=== PATIENT | male | born 1950 | race Asian ===

== ENCOUNTER 2019-04-06 19:41 | Emergency (ER) | payer BC, MEDICARE ==
--- NOTE | 2019-04-06 20:04 | EDM.PDOC ---
ED HPI GENERAL MEDICAL PROBLEM - General Chief Complaint: Cardiovascular Problem Stated Complaint: COUGH Time Seen by Provider: 04/06/19 19:59 Source of Information: Reports: Patient History Limitations: Reports: No Limitations - History of Present Illness INITIAL COMMENTS - FREE TEXT/NARRATIVE: Patient comes in after suffering a coughing spell that nearly caused him to pass out. His significant other that is with him thought he was having an asthma attack. He denies any history of asthma. He has had this cough for the last 3 days and is minimally productive. Denies fever, chills, SOB, chest pain , no abdominal pain, no blood in urine or stool. No complaints, some constipation. History of stent placed 2 years ago, but is still on plavix due to narrowing of coronary arteries. Denies history of heart attack or stroke. Has been on lisinopril for some time. Onset: Gradual Duration: Intermittent Location: Reports: Chest Severity: Mild Improves with: Reports: None Worsens with: Reports: None Associated Symptoms: Reports: Other (sinus congestion) - Related Data Allergies Allergy/AdvReac Type Severity Reaction Status Date / Time No Known Allergies Allergy Verified 04/06/19 19:55 Home Meds: Home Meds Allopurinol [Zyloprim] 300 mg PO DAILY 07/30/17 [History] Aspirin [Halfprin] 81 mg PO BRK 07/30/17 [History] Celecoxib 200 mg PO DAILY PRN 07/30/17 [History] Clopidogrel [Plavix] 75 mg PO DAILY 07/30/17 [History] Lisinopril 20 mg PO DAILY 07/30/17 [History] Metoprolol Succinate [Toprol XL] 25 mg PO DAILY 07/30/17 [History] [place]-3/DHA/Epa/Fish Oil [Fish Oil 1,000 mg Softgel] 1 each PO DAILY 07/30/17 [ History] Rosuvastatin Calcium 20 mg PO DAILY 04/06/19 [History] ED ROS GENERAL - Review of Systems Review Of Systems: See Below Constitutional: Reports: No Symptoms HEENT: Reports: Sinus Problem Respiratory: Reports: Cough, Sputum Cardiovascular: Reports: No Symptoms Endocrine: Reports: No Symptoms GI/Abdominal: Reports: No Symptoms : Reports: No Symptoms Musculoskeletal: Reports: No Symptoms Skin: Reports: No Symptoms Neurological: Reports: Dizziness Psychiatric: Reports: No Symptoms Hematologic/Lymphatic: Reports: No Symptoms Immunologic: Reports: No Symptoms ED EXAM, GENERAL - Physical Exam Exam: See Below Exam Limited By: No Limitations General Appearance: Alert, WD/WN, No Apparent Distress Eye Exam: Bilateral Eye: EOMI, Normal Inspection, PERRL Ears: Normal TMs Nose: Normal Inspection, Normal Mucosa, No Blood Throat/Mouth: Normal Inspection, Normal Lips, Normal Teeth, Normal Gums, Normal Oropharynx, Normal Voice, No Airway Compromise Head: Atraumatic, Normocephalic Neck: Normal Inspection, Supple, Non-Tender, Full Range of Motion Respiratory/Chest: No Respiratory Distress, Lungs Clear, Normal Breath Sounds, No Accessory Muscle Use, Chest Non-Tender Cardiovascular: Normal Peripheral Pulses, Regular Rate, Rhythm, No Edema, No Gallop, No JVD, No Murmur, No Rub Peripheral Pulses: 2+: Posterior Tibial (L), Posterior Tibial (R), Dorsalis Pedis (L), Dorsalis Pedis (R) GI/Abdominal: Normal Bowel Sounds, Soft, Non-Tender, No Organomegaly, No Distention, No Abnormal Bruit, No Mass Back Exam: Normal Inspection, Full Range of Motion, NT Extremities: Normal Inspection, Normal Range of Motion, Non-Tender, Normal Capillary Refill, No Pedal Edema Neurological: Alert, Oriented, CN II-XII Intact, Normal Cognition, Normal Gait, Normal Reflexes, No Motor/Sensory Deficits Psychiatric: Normal Affect, Normal Mood Skin Exam: Warm, Dry, Intact, Normal Color, No Rash Lymphatic: No Adenopathy EKG INTERPRETATION EKG Date: 04/06/19 Time: 20:29 Rhythm: NSR Rate (Beats/Min): 73 [place]: LAD-Left [place] Deviation P-Wave: Present QRS: Normal ST-T: Normal QT: Normal Comparison: NA - No Prior EKG Course - Vital Signs Last Recorded V/S: Last Vital Signs Temp 36.6 C 04/06/19 19:53 Pulse 78 04/06/19 19:53 Resp 16 04/06/19 19:53 BP 110/66 04/06/19 19:53 Pulse Ox 94 L 04/06/19 19:53 Departure - Departure Time of Disposition: 21:08 Disposition: Home, Self-Care 01 Condition: Good Clinical Impression: Vasovagal near-syncope Instructions: Near-Syncope, [id number], Allergies, Adult, [id number] Referrals: Lula Hoffmann DO [Primary Care Provider] - Additional Instructions: Plan 1. Follow up with Dr. Hoffmann as needed for additional follow up. If you start running a fever or chills, you should be reevaluated for pneumonia. 2. Take over the counter antihistamines like zyrtec or claritin for your allergies 3. Stay well hydrated 4. If your cough continues for several weeks, you may want to visit with Dr. Hoffmann about stopping lisinopril 5. This does appear to be what is called a vasal vagal episode where your coughing spell triggered a low blood pressure causing a near collapse. 6. You can try honey in tea for your cough 7. Please call if you have any questions or concerns - Problem List & Annotations (1) Seasonal allergies SNOMED Code(s): 810643244 Code(s): J30.2 - OTHER SEASONAL ALLERGIC RHINITIS Status: Acute Priority : Low Current Visit: Yes (2) Vasovagal near-syncope SNOMED Code(s): 355701217 Code(s): R55 - SYNCOPE AND COLLAPSE Status: Acute Priority: Medium Current Visit: Yes - Problem List Review Problem List Initiated/Reviewed/Updated: Yes - Assessment/Plan Assessment:: vasavagal syncope seasonal allergies Plan: Plan 1. Follow up with Dr. Hoffmann as needed for additional follow up. If you start running a fever or chills, you should be reevaluated for pneumonia. 2. Take over the counter antihistamines like zyrtec or claritin for your allergies 3. Stay well hydrated 4. If your cough continues for several weeks, you may want to visit with Dr. Hoffmann about stopping lisinopril 5. This does appear to be what is called a vasal vagal episode where your coughing spell triggered a low blood pressure causing a near collapse. 6. You can try honey in tea for your cough 7. Please call if you have any questions or concerns
[2019-04-06] MEDS ORDERED: Albuterol/Ipratropium 3.0-0.5 MG/3 ML Neb Soln NEB ONE (20:11)
[2019-04-06] MEDS ORDERED: methylPREDNISolone Sodium Succinate 40 MG/1 ML SDV IM ONE (20:11)
--- NOTE | 2019-04-06 20:43 | CR ---
[id number] RAD/RAD Chest PA or AP 1V EXAM: RAD Chest PA or AP 1V INDICATION: COUGH COMPARISON: None. DISCUSSION: Linear metallic density overlying the left lung apex may be external to the patient. Cardiomediastinal silhouette is normal in size and contour. No infiltrate, effusion, pneumothorax, or edema. Low lung volumes associated vascular crowding. IMPRESSION: No acute cardiopulmonary abnormality. Khris Ibrahim DO 04/06/19 2042 Thank you for allowing us to participate in the care of your patient.
[2019-04-06 20:54] LABS: CHLORIDE,CL 102 mmol/L (98-107); SODIUM,NA 139 mmol/L (136-145)
[2019-04-06 20:55] LABS: ANION GAP 14.1 mmol/L (10-20)
== END 2019-04-06 21:14 | disposition home or self-care (01) ==
LOC: VM.ED 19:41
DX: R55 Syncope and collapse (principal); Z79.82 Long term (current) use of aspirin; Z79.899 Other long term (current) drug therapy
CPT/HCPCS: 36415; 71045; 80053; 84484; 85025; 93005; 94640; 96372; 99284-25; J2920; J7620-GY

== ENCOUNTER 2021-09-22 10:32 | Emergency (ER) | payer BC, MEDICARE ==
[2021-09-22] MEDS ORDERED: Sodium Chloride 0.9% 10 ML Syringe FLUSH PRN (11:06)
--- NOTE | 2021-09-22 11:13 | EDM.PDOC ---
ED HPI GENERAL MEDICAL PROBLEM - General Stated Complaint: DIFFICULTY BREATHING Time Seen by Provider: 09/22/21 11:06 Source of Information: Reports: Patient, Family - History of Present Illness INITIAL COMMENTS - FREE TEXT/NARRATIVE: Sergo is a 71 y/o male who is brought the ER via POV by his after he had a coughing episode and home and then collapsed. He may have passed out, but came right to. He did receive the Moderna booster and influenza vaccines last week. The last 3-4 days he has had a cold and congestion. He has alot of drainage down the back of his throat and then he coughs alot. He sometimes gets a bloody nose when he blows his nose. No fever. He does feel a little SOB with all of this going on. Denies chest pain now. Does have a hx of PTCA x1 in 2017 following a cath when he had an abnormal stress test. - Related Data Allergies Allergy/AdvReac Type Severity Reaction Status Date / Time No Known Allergies Allergy Verified 04/06/19 19:55 Home Meds: Home Meds Allopurinol [Zyloprim] 300 mg PO DAILY 07/30/17 [History] Aspirin [Halfprin] 81 mg PO BRK 07/30/17 [History] Metoprolol Succinate [Toprol XL] 25 mg PO DAILY 07/30/17 [History] [place]-3/DHA/Epa/Fish Oil [Fish Oil 1,000 mg Softgel] 1 each PO DAILY 07/30/17 [History] Rosuvastatin Calcium 20 mg PO DAILY 04/06/19 [History] Amoxicillin 875 mg PO BID #16 tab 09/22/21 [Rx] Cholecalciferol (Vitamin D3) [Vitamin D3] 2,000 unit PO 09/22/21 [History] Dupilumab [Dupixent Pen] 300 mg SQ ASDIRECTED 09/22/21 [History] Losartan [Cozaar] 50 mg PO DAILY 09/22/21 [History] Melatonin 1 mg PO BEDTIME 09/22/21 [History] Past Medical History Cardiovascular History: Reports: High Cholesterol, Hypertension, Stents Other Cardiovascular History: Stent x 1 placed in 2017 Review of Systems - Review of Systems Review Of Systems: See Below Constitutional: Reports: No Symptoms Eyes: Reports: No Symptoms Ears: Reports: No Symptoms Nose: Reports: Congestion, Bloody Discharge, Purulent Discharge Mouth/Throat: Reports: No Symptoms Respiratory: Reports: Shortness of Breath, Cough Cardiovascular: Reports: No Symptoms GI/Abdominal: Reports: No Symptoms Genitourinary: Reports: No Symptoms Musculoskeletal: Reports: No Symptoms Skin: Reports: No Symptoms Neurological: Reports: Dizziness Psychiatric: Reports: No Symptoms ED EXAM, GENERAL - Physical Exam Exam: See Below General Appearance: Alert, WD/WN, No Apparent Distress (Elderly male, lying quietly on ER cart.) Eye Exam: Bilateral Eye: PERRL Ears: Normal External Exam, Normal Canal, Hearing Grossly Normal, Normal TMs Nose: Other (Nasal mucos irritated) Throat/Mouth: Normal Inspection, Normal Lips, Normal Oropharynx, Normal Voice Head: Atraumatic, Normocephalic Neck: Supple Respiratory/Chest: No Respiratory Distress, Lungs Clear, Chest Non-Tender Cardiovascular: Normal Peripheral Pulses, Regular Rate, Rhythm GI/Abdominal: Normal Bowel Sounds, Soft (Male) Exam: Deferred Rectal (Males) Exam: Deferred Back Exam: Normal Inspection Extremities: Normal Inspection, Normal Capillary Refill Neurological: Alert, Oriented, CN II-XII Intact, No Motor/Sensory Deficits Psychiatric: Normal Affect, Normal Mood Skin Exam: Warm, Dry, Intact, Normal Color Lymphatic: No Adenopathy #1 Interpretation EKG Date: 09/22/21 Time: 10:37 Rhythm: NSR Rate (Beats/Min): 81 [place]: Normal P-Wave: Present QRS: Normal ST-T: Normal QT: Normal Comparison: No Change EKG Interpretation Comments: Sinus Rhythm Course - Vital Signs Text/Narrative:: The patient was seen by the [facility]. Labs, EKG, and CXR ordered. VSS. Patient has hx of syncope with vasovagal reaction in past from coughing, but will rule out other causes due to past medical hx. 1220 Labs reviewed, doubt cardica etiology of syncope. Patient had coughing spell and has done this in the past. Will treat with abx for sinus infection. Written instructions were given and he left the ER in stable condition. Last Recorded V/S: Last Vital Signs Temp 36.8 C 09/22/21 11:11 Pulse 94 09/22/21 11:11 Resp 18 09/22/21 11:11 BP 193/104 H 09/22/21 11:11 Pulse Ox 95 09/22/21 11:11 - Orders/Labs/Meds Orders: Active Orders 24 hr Category Date Time Status COVID-19/FLU A+B [MOLEC] Stat Lab 09/22/21 11:07 Ordered UA RFX VERENA AND CULT IF INDIC [URIN] Stat Lab 09/22/21 11:07 Ordered Amoxicillin [Take Home: Amoxicillin 875 MG Tab, 2 Tab Med 09/22/21 12:25 Once Pack] 2 packet PO ONETIME ONE Sodium Chloride 0.9% [Saline Flush] Med 09/22/21 11:06 Active 10 ml FLUSH ASDIRECTED PRN Saline Lock Insert [OM.PC] Stat Oth 09/22/21 11:06 Ordered Medication Orders Sodium Chloride (Sodium Chloride 0.9% 10 Ml Syringe) 10 ml FLUSH ASDIRECTED PRN PRN Reason: Keep Vein Open Labs: Laboratory Tests 09/22/21 09/22/21 09/22/21 Range/Units 11:27 11:27 11:27 WBC 8.0 (4.0-10.0) x10^3/uL RBC 4.75 (4.5-6.0) x10^6/uL Hgb 14.7 (14.0-18.0) g/dL Hct 43.4 (40.0-52.0) % MCV 91.4 (78.0-93.0) fL MCH 30.9 (26.0-32.0) pg MCHC 33.9 (32.0-36.0) g/dL RDW Coeff of Nii 13.0 (10.0-15.0) % Plt Count 216 (130-400) x10^3/uL Immature Gran % (Auto) 0.10 (0.00-0.43) % Neut % (Auto) 59.5 (50.0-80.0) % Lymph % (Auto) 23.2 L (25.0-50.0) % [place] % (Auto) 8.1 (2.0-11.0) % Eos % (Auto) 8.9 H (0.0-4.0) % Baso % (Auto) 0.2 (0.2-1.2) % Neut # (Auto) 4.8 (1.8-7.7) x10^3/uL Lymph # (Auto) 1.9 (1.0-4.8) x10^3/uL [place] # (Auto) 0.7 (0.0-0.8) x10^3/uL Eos # (Auto) 0.7 H (0.0-0.5) x10^3/uL Baso # (Auto) 0.0 (0.0-0.2) x10^3/uL Immature Gran # (Auto) 0.01 (0.00-0.07) x10^3/uL PT 10.2 (9.9-12.5) SEC INR 0.9 L (2.0-3.5) D-Dimer, Quantitative (<=0.58) mg/LFEU Sodium 142 (136-145) mmol/L Potassium 3.9 (3.5-5.1) mmol/L Chloride 105 (98-107) mmol/L Carbon Dioxide 30 (21-32) mmol/L Anion Gap 10.9 (5-15) mmol/L BUN 12 (7-18) mg/dL Creatinine 1.0 (0.70-1.30) mg/dL Est Cr Clr Drug Dosing 55.91 mL/min Estimated GFR (MDRD) > 60 Glucose 115 H (70-99) mg/dL Calcium 9.3 (8.5-10.1) mg/dL Corrected Calcium 9.8 (8.5-10.1) mg/dL Magnesium 2.2 (1.8-2.4) mg/dL Total Bilirubin 0.9 (0.2-1.0) mg/dL AST 35 (15-37) U/L ALT 48 (16-63) U/L Alkaline Phosphatase 98 (46-116) U/L Troponin I High Sens 9 (<=76) ng/L C-Reactive Protein 1.2 H (<=0.9) mg/dL Total Protein 7.3 (6.4-8.2) g/dL Albumin 3.4 (3.4-5.0) g/dL Globulin 3.9 Albumin/Globulin Ratio 0.87 TSH, Ultra Sensitive 0.795 (0.358-3.74) uIU/mL 09/22/21 Range/Units 11:27 WBC (4.0-10.0) x10^3/uL RBC (4.5-6.0) x10^6/uL Hgb (14.0-18.0) g/dL Hct (40.0-52.0) % MCV (78.0-93.0) fL MCH (26.0-32.0) pg MCHC (32.0-36.0) g/dL RDW Coeff of Nii (10.0-15.0) % Plt Count (130-400) x10^3/uL Immature Gran % (Auto) (0.00-0.43) % Neut % (Auto) (50.0-80.0) % Lymph % (Auto) (25.0-50.0) % [place] % (Auto) (2.0-11.0) % Eos % (Auto) (0.0-4.0) % Baso % (Auto) (0.2-1.2) % Neut # (Auto) (1.8-7.7) x10^3/uL Lymph # (Auto) (1.0-4.8) x10^3/uL [place] # (Auto) (0.0-0.8) x10^3/uL Eos # (Auto) (0.0-0.5) x10^3/uL Baso # (Auto) (0.0-0.2) x10^3/uL Immature Gran # (Auto) (0.00-0.07) x10^3/uL PT (9.9-12.5) SEC INR (2.0-3.5) D-Dimer, Quantitative 0.39 (<=0.58) mg/LFEU Sodium (136-145) mmol/L Potassium (3.5-5.1) mmol/L Chloride (98-107) mmol/L Carbon Dioxide (21-32) mmol/L Anion Gap (5-15) mmol/L BUN (7-18) mg/dL Creatinine (0.70-1.30) mg/dL Est Cr Clr Drug Dosing mL/min Estimated GFR (MDRD) Glucose (70-99) mg/dL Calcium (8.5-10.1) mg/dL Corrected Calcium (8.5-10.1) mg/dL Magnesium (1.8-2.4) mg/dL Total Bilirubin (0.2-1.0) mg/dL AST (15-37) U/L ALT (16-63) U/L Alkaline Phosphatase (46-116) U/L Troponin I High Sens (<=76) ng/L C-Reactive Protein (<=0.9) mg/dL Total Protein (6.4-8.2) g/dL Albumin (3.4-5.0) g/dL Globulin Albumin/Globulin Ratio TSH, Ultra Sensitive (0.358-3.74) uIU/mL Meds: Medications Generic Name Dose Route Start Last Admin Trade Name Freq PRN Reason Stop Dose Admin Sodium Chloride 10 ml 09/22/21 11:06 Sodium Chloride 0.9% 10 Ml Syringe FLUSH ASDIRECTED PRN Keep Vein Open Departure - Departure Time of Disposition: 12:26 Disposition: Home, Self-Care 01 Condition: Good Clinical Impression: Acute sinus infection Qualifiers: Sinusitis location: other Recurrence: not specified as recurrent Qualified Code(s): J01.80 - Other acute sinusitis Syncope Qualifiers: Syncope type: unspecified Qualified Code(s): R55 - Syncope and collapse - Discharge Information Prescriptions: Amoxicillin 875 mg PO BID #16 tab Instructions: Sinusitis, Adult, Syncope Referrals: Lula Hoffmann DO [Primary Care Provider] - Forms: ED Department Discharge Additional Instructions: -Amoxicillin 875mg oral 2x daily fore 10 days #4 (ER) #16(Rx) -Ibuprofen 200mg 3 tablets oral every 6 hours as needed pain/fever (Use over the counter meds) -Acetaminophen 325mg 2-3 tablets oral every 6 hours as needed for pain/fever ( Use over the counter meds) -Fluticasone propionate (50mcg/sp) 2 sprays each nare qd #16gm (Rx) (Use OTC meds) -Guaifensen DM 10 ml po q 4hr prn #118ml (Rx) (Use OTC meds) -Get a Janice-Med nasal rinse kit at the pharmacy and use saline to rinse your nasal passages out 2-3 a day -Drink plenty of fluids -Rest -Follow up with your PCP if you are not feeling better -Return to the ER if you have other concerns Sepsis Event Note (ED) - Focused Exam Vital Signs: Vital Signs Temp Pulse Resp BP Pulse Ox 09/22/21 11:11 36.8 C 94 18 193/104 H 95 - Problem List & Annotations (1) Acute sinus infection SNOMED Code(s): 37656776 Code(s): J01.90 - ACUTE SINUSITIS, UNSPECIFIED Status: Acute Current Visit: Yes Annotation/Comment:: Cough secondary to sinus infection. Will treat with OTC med and Amoxicillin. Qualifiers: Sinusitis location: other Recurrence: not specified as recurrent Qualified Code(s): J01.80 - Other acute sinusitis (2) Syncope SNOMED Code(s): 714166239 Code(s): R55 - SYNCOPE AND COLLAPSE Status: Acute Current Visit: Yes Annotation/Comment:: EKG and labs negative. Qualifiers: Syncope type: unspecified Qualified Code(s): R55 - Syncope and collapse - My Orders Last 24 Hours: My Active Orders 09/22/21 11:06 Sodium Chloride 0.9% [Saline Flush] 10 ml FLUSH ASDIRECTED PRN Saline Lock Insert [OM.PC] Stat 09/22/21 11:07 COVID-19/FLU A+B [MOLEC] Stat UA RFX VERENA AND CULT IF INDIC [URIN] Stat 09/22/21 12:25 Amoxicillin [Take Home: Amoxicillin 875 MG Tab, 2 Tab Pack] 2 packet PO ONETIME ONE - Assessment/Plan Last 24 Hours: My Active Orders 09/22/21 11:06 Sodium Chloride 0.9% [Saline Flush] 10 ml FLUSH ASDIRECTED PRN Saline Lock Insert [OM.PC] Stat 09/22/21 11:07 COVID-19/FLU A+B [MOLEC] Stat UA RFX VERENA AND CULT IF INDIC [URIN] Stat 09/22/21 12:25 Amoxicillin [Take Home: Amoxicillin 875 MG Tab, 2 Tab Pack] 2 packet PO ONETIME ONE Plan: As above
[2021-09-22 12:04] LABS: CHLORIDE,CL 105 mmol/L (98-107); SODIUM,NA 142 mmol/L (136-145)
[2021-09-22 12:05] LABS: ANION GAP 10.9 mmol/L (5-15)
[2021-09-22] MEDS ORDERED: Take Home: Amoxicillin 875 MG Tab, 2 Tab Pack PO ONE (12:25)
== END 2021-09-22 12:34 | disposition home or self-care (01) ==
LOC: VM.ED 10:32
DX: R55 Syncope and collapse (principal); J01.80 Other acute sinusitis; E78.00 Pure hypercholesterolemia, unspecified; I10 Essential (primary) hypertension; Z95.5 Presence of coronary angioplasty implant and graft; Z79.899 Other long term (current) drug therapy; Z79.82 Long term (current) use of aspirin
CPT/HCPCS: 36415; 80053; 83735; 84443; 84484; 85025; 85379; 85610; 86140; 93005; 93010; 99284; 99284-25; A9270-GY